=== PATIENT | female | born 1985 | race Caucasian/White ===

== ENCOUNTER 2017-01-10 07:12 | Inpatient (IN) | payer OTHER ==
[2017-01-10 07:56] LABS: Hematocrit 32.9 % (37.0-47.0); Hemoglobin 11.1 gm/dL (12.5-16.0); Mean Cell Volume 79.5 fl (78-100); Mean Corpuscular Hemoglobin 26.8 pg (27-31); Mean Corpuscular Hgb Conc 33.7 g/dl (32-36); Mean Platelet Volume 10.1 fl (6.0-9.5); Neutrophil # 5.3 K/mm3 (1.3-6.0); Neutrophil % 68.6 % (42-75.0); Platelet Count 218 K/mm3 (150-450); Red Blood Count 4.14 M/mm3 (4.2-5.4); Red Cell Distribution Width 14.5 % (11.5-14.0); White Blood Count 7.8 K/mm3 (4.0-10.5)
[2017-01-10] MEDS ORDERED: OXYTOCIN/DEXTROSE 5%-WATER 30 UNITS/500 ML BAG IV ONE (08:31)
[2017-01-10] MEDS ORDERED: ONDANSETRON HCL/PF 2 MG/ML VIAL IV PRN (08:31)
[2017-01-10] MEDS ORDERED: PENICILLIN G POTASSIUM 5 MILLIONUNT in DEXTROSE 5 % IN WATER 100 ML IV ONE ×2 (08:31)
[2017-01-10] MEDS ORDERED: LIDOCAINE HCL 50 ML VIAL PERI PRN (08:31)
[2017-01-10] MEDS: RINGERS SOLUTION,LACTATED 1,000 ML IV PRN ×2 (09:02→21:59)
[2017-01-10] MEDS: MISOPROSTOL 100 MCG TABLET VG PRN ×2 (09:03→13:45)
[2017-01-10] MEDS: PENICILLIN G POTASSIUM 2.5 MILLIONUNT in DEXTROSE 5 % IN WATER 100 ML IV SCH ×6 (13:07→21:59)
--- NOTE | 2017-01-10 18:20 | PN ---
Subjective - Date and Time Seen Date: 01/10/17 Subjective Narrative: labor note: 31 yo, CF, at 40.2 week. admitted for elective induction of labor. history of genital herpes on valtrex and no lesions now. histor of DVT after cardiac catheterization, plan for SCDs now and anticoagulation . GBS positive on penicillin. dilated to 1 cm, 50%, -2 s/p cytotec 25 mcg per vagina x 2. Cervix dilated to 3-4 cm, 60% and -2 Contractions: q2-4 min FHR reassuring. Plan: will start pitocin for induction/augmentation. epidural if desired. Duong Ozuna MD Objective - Vitals Vitals: Last Vital Signs Temp 36.4 C L 03/17/16 22:53 Pulse Resp BP 120/78 03/18/16 00:22 Pulse Ox - Abnormal Lab Findings Abnormal Lab Findings: Abnormal Lab Results 01/10/17 Range/Units 07:47 RBC 4.14 L (4.2-5.4) M/mm3 Hgb 11.1 L (12.5-16.0) gm/dL Hct 32.9 L (37.0-47.0) % MCH 26.8 L (27-31) pg RDW 14.5 H (11.5-14.0) % MPV 10.1 H (6.0-9.5) fl Immature Gran % (Auto) 0.90 H (0.001-0.429) % Immature Gran # (Auto) 0.07 H (0.000-0.0310) K/mm3
[2017-01-10] MEDS ORDERED: RINGERS SOLUTION,LACTATED 1,000 ML IV ONE (20:59)
[2017-01-10] MEDS ORDERED: fentaNYL CITRATE/PF 50 MCG/ML AMPUL IT SCH (21:45)
[2017-01-10] MEDS ORDERED: BUPIVACAINE HCL/0.9 % NACL/PF 250 ML EP PRN (21:45)
--- NOTE | 2017-01-10 21:49 | OR ---
Anesthesia Pre Procedure Eval Date of Service: 01/10/17 Pre Procedure Evaluation: Last Vital Signs Temp 36.4 C L 03/17/16 22:53 Pulse Resp BP 120/78 03/18/16 00:22 Pulse Ox Anesthesia Pre Procedure Evaluation Heart Rate:81 Blood Pressure:128/76 Termperature:37.1 Respiratory Rate:16 SaO2:97 DATE: 01/10/2017 TIME: 2144 INDICATIONS: Active labor, labor pain PAST MEDICAL HISTORY: Multipara patient and active labor requesting labor analgesia. Her last delivery was 8 years ago. She has since had several health issues including DVTs following surgery requiring anticoagulant therapy. She is not currently on anticoagulants. EXAM: Heart S1-S2 regular; lungs clear bilaterally ASSESSMENT OF MEDICAL STATUS: Appropriate candidate for labor analgesia PLANNED PROCEDURE: Combination spinal epidural for labor analgesia Home Medications: HOME MEDICATIONS Vit#96/Ferrous Fum/FA [ S] 1 tab PO DAILY 12/21/16 [Last Taken 12/21/16] valACYclovir HCL [Valtrex] 1,000 mg PO DAILY 12/21/16 [Last Taken 01/09/17 21:00 ] Calcium Carb/D3/Magnesium/Zinc [Dixon Mag Zinc + D Tablet] 0.5 each PO PRN PRN 07/17 [Last Taken Unknown]
--- NOTE | 2017-01-10 22:25 | OR ---
Anesthesia Procedure Note - Anesthesia Procedure Note Date of Service: 01/10/17 Narrative: Vital Signs - Last Taken Temp 36.4 C L 03/17/16 22:53 Pulse Resp BP 120/78 03/18/16 00:22 Pulse Ox 01/10/17 21:49 ANESTHESIA PROCEDURE NOTE Date of Procedure: 01/10/2017 Time of procedure: 2144. Performed by: SANIYA Fry CRNA, MSN [employer] Operator: Kari Mac RN. Preprocedure diagnosis: Active labor, labor pain. Post procedure diagnosis: Same. Procedure: Labor Epidural Placement L3 4. Indications: Labor pain. Findings: See below. Details of the procedure: The patient was placed on the side of the bed in sitting position. The patient was prepped with DuraPrep and draped in a sterile fashion. Lidocaine 1% was infiltrated to the skin and subcutaneous tissues at the level of the L3 4 interspace. The epidural space was identified using a 18-gauge Tuohy needle with [id number] technique. Fentanyl 20 g was given intrathecally the intrathecal needle was then removed and the epidural catheter was threaded approximately 4 cm, the epidural needle was then removed, and after careful aspiration 3 mL of 1.5% lidocaine with 1-200,000 epinephrine was injected without change in maternal heart rate or sensorium. The catheter was then taped in place. EBL: Minimal. Fluids: N/A. Specimen: N/A. Post procedure condition: The patient tolerated the procedure well with good relief. No complications were noted. Thank you for this consultation. Jonanthan Gonzalez CRNA, ARNP, MSN
[2017-01-11] MEDS: PENICILLIN G POTASSIUM 2.5 MILLIONUNT in DEXTROSE 5 % IN WATER 100 ML IV SCH ×4 (01:59→03:39)
[2017-01-11] MEDS ORDERED: HYDROCORTISONE 30 APPL TUBE TP PRN (03:31)
[2017-01-11] MEDS ORDERED: OXYTOCIN/DEXTROSE 5%-WATER 30 UNITS/500 ML BAG IV ONE (03:31)
[2017-01-11] MEDS ORDERED: diphenhydrAMINE HCL 25 MG CAPSULE PO PRN (03:31)
[2017-01-11] MEDS ORDERED: SENNOSIDES 8.6 MG TABLET PO PRN (03:31)
[2017-01-11] MEDS ORDERED: BENZOCAINE/MENTHOL 81 SPRAY CAN TP PRN (03:31)
[2017-01-11] MEDS ORDERED: BISACODYL 10 MG SUPP.RECT RC PRN (03:31)
[2017-01-11] MEDS ORDERED: GLYCERIN/WITCH HAZEL LEAF 40 APPL BOX TP PRN (03:31)
[2017-01-11] MEDS ORDERED: HYDROcodone/ACETAMINOPHEN 1 EACH TABLET PO PRN (03:31)
--- NOTE | 2017-01-11 03:49 | OR ---
Operative Report - Dictated Report Narrative: Spontaneous Vaginal Delivery Note: 31 yo, CF, admitted at 40.2 weeks for induction of labor due to post date. Dilated to 1 cm at admission. GBS positive on penicillin. Cytotec 25 mcg x 2 placed vaginally for cervical ripening and progressed to 3-4 cm. Pitocin started for augmentation. SROM with clear fluid at 8:30 pm last night. Received epidural at 11:00 pm. Progressed to complete without complications. The perineum cleaned with betadine. Pushed with contractions and descent. Head delivered in KHLOE over the perineum. No nuchal cord noted. The anterior shoulder delivered, followed by the posterior shoulder and the rest of the baby without difficulty. Baby cried at perineum. Cord was clamped, and cut by father of baby. Baby placed on maternal abdomen for drying and care by the nursing. Cord blood was obtained. Placenta delivered intact with 3 vessel cord. Pitocin drip started after placenta delivered. Exam of the perineum, vaginal and cervix revealed a partial third degree vaginal and perineum laceration, 5 cm in length with a partial torn external sphincter edge. This was repaired with 3-0 Vicryl suture in a normal fashion with repair of the torn external sphincter edge. Fundus was massaged and firm. Bleeding was minimal. Mother and baby tolerated the delivery well. EBL 150 ml. Infant: male, 3891 grams, 9/9. Time of delivery: 02:13. Duong Ozuna MD History for Definition: * The number of deliveries resulting in a live the patient experienced prior to current hospitalization * The previous delivery of live twins or any live multiple gestation is considered one live event. *If primagravida or nulliparous is documented select zero for the number of previous live births. Live Events: 1
[2017-01-11] MEDS: HYDROcodone/ACETAMINOPHEN 1 EACH TABLET PO PRN ×3 (04:14→21:01)
[2017-01-11] MEDS: IBUPROFEN 800 MG TABLET PO PRN ×4 (04:15→23:43)
[2017-01-11] MEDS ORDERED: ENOXAPARIN SODIUM 40 MG/0.4 ML SYRG SC SCH (09:00)
[2017-01-11] MEDS: DOCUSATE SODIUM 100 MG CAPSULE PO SCH ×2 (09:21→20:59)
[2017-01-11] MEDS: ENOXAPARIN SODIUM 40 MG/0.4 ML SYRG SC SCH (11:27)
[2017-01-12] MEDS: HYDROcodone/ACETAMINOPHEN 1 EACH TABLET PO PRN ×4 (05:16→21:48)
[2017-01-12] MEDS: IBUPROFEN 800 MG TABLET PO PRN ×2 (09:25→15:40)
[2017-01-12] MEDS: DOCUSATE SODIUM 100 MG CAPSULE PO SCH ×2 (09:25→21:46)
[2017-01-12] MEDS: ENOXAPARIN SODIUM 40 MG/0.4 ML SYRG SC SCH (11:36)
--- NOTE | 2017-01-12 13:05 | PN ---
Subjective - Date and Time Seen Date: 01/12/17 Subjective Narrative: day 1, s/p Doing well. No complaints. by pumping. Normal lochia. Has not have a bowel movement. Objective - Vitals Vitals: Last Vital Signs Temp 35.9 C L 01/12/17 06:56 Pulse 78 01/12/17 06:56 Resp 16 01/12/17 06:56 BP 123/69 01/12/17 06:56 Pulse Ox 99 01/12/17 06:56 - Exam Constitutional: Present: Alert, Oriented x3, Cooperative Respiratory: Present: no respiratory distress Cardiovascular/Chest: Present: normal peripheral pulses Abdomen: Present: soft, nontender, nondistended, other - fundus firm Extremity: Present: normal range of motion, no calf tenderness, pedal edema Skin Exam: Present: normal color, warm/dry, no cyanosis Eye contact: Present: cooperative, good eye contact, normal speech Cauti Physician Documentation - Urinary Catheter Management Urethral (Shaw) Date of Insertion: 01/10/17 Time of Insertion: 23:15 Assessment/Plan Plan Narrative: A: PPD#1, s/p stable and well. Plan: routine care. jim give a dose of Sinokot to help with a bowel movement. Duong Ozuna MD
[2017-01-13] MEDS: HYDROcodone/ACETAMINOPHEN 1 EACH TABLET PO PRN (04:49)
[2017-01-13] MEDS: IBUPROFEN 800 MG TABLET PO PRN (08:26)
[2017-01-13] MEDS: DOCUSATE SODIUM 100 MG CAPSULE PO SCH (08:26)
[2017-01-13 09:47] VITALS: BP 114/45
[2017-01-13] MEDS: ENOXAPARIN SODIUM 40 MG/0.4 ML SYRG SC SCH (10:56)
--- NOTE | 2017-01-13 13:10 | PN ---
Subjective - Date and Time Seen Date: 01/13/17 Subjective Narrative: No complaints. Voiding, ambulating, taking diet, pain controlled with non- narcotics, lochia small, . Objective - Review of Systems Generalized/Overall Review: Reports: No Symptoms Reported EENTM: Reports: No Symptoms Reported Respiratory: Reports: No Symptoms Reported Cardiac: Reports: No Symptoms Reported Abdominal: Reports: No Symptoms Reported Genitourinary Symptoms: Reports: No Symptoms Reported Musculoskeletal Complaints: Reports: No Symptoms Reported Neurological: Reports: No Symptoms Reported Skin: Reports: No Symptoms Reported Endocrine: Reports: No Symptoms Reported - Vitals Vitals: Last Vital Signs Temp 36.5 C 01/13/17 09:36 Pulse 65 01/13/17 09:36 Resp 16 01/13/17 09:36 BP 114/45 01/13/17 09:36 Pulse Ox 98 01/13/17 09:36 - Exam Constitutional: Present: Alert, Oriented x3, Cooperative, No distress Breasts: Present: Exam deferred Abdomen: Present: soft, nontender - fundus firm, below umb /Rectal: Present: External genitalia normal - perineual stitches intact Extremity: Present: other - mild generalized edema lower extremities Skin Exam: Present: normal color, warm/dry Appearance: Present: appropriate appearance Eye contact: Present: cooperative, good eye contact Cauti Physician Documentation - Urinary Catheter Management Urethral (Shaw) Urethral Indwelling: No Date of Insertion: 01/10/17 Time of Insertion: 23:15 Assessment/Plan Plan Narrative: Satisfactory course. Stable for discharge on Lovenox 40mg daily for VTE prophylaxis due to history. Patient knows how to administer. Will have f/u with Dr. Ozuna in 2 weeks. Advised to keep stools soft, take colace twice daily and drink lots of water. Other usual precautions given. - Problems/Diagnosis (1) History of venous thromboembolism Problem: Acute (2) (normal spontaneous vaginal delivery) Problem: Acute
[2017-01-13] MEDS ORDERED: ZINC PO PRN (13:28)
[2017-01-13] MEDS ORDERED: CALCIUM CARBONATE PO PRN (13:28)
[2017-01-13] MEDS ORDERED: [UNRECOGNIZED DRUG - OTHER] PO PRN (13:28)
[2017-01-13] MEDS ORDERED: MAGNESIUM PO PRN (13:28)
[2017-01-13] MEDS ORDERED: CHOLECALCIFEROL PO PRN (13:28)
--- NOTE | 2017-01-13 13:28 | DS ---
(1) History of venous thromboembolism Problem: Acute (2) (normal spontaneous vaginal delivery) Problem: Acute Description of Stay: Admitted at 40+2 weeks gestation for induction per Dr. Ozuna. Vaginal cytotec 25 MCG x 2 doses given with good response followed by pitocin augmentation. SROM and received epidural anesthesia. Underwent shading painter of 01/11/[address] Ozuna with delivery of viable 3891gm male infant apgars of 9 and 9. Partial 3rd degree perineal laceration sustained and repaired in standard fashion. patient did well, remained afebrile, advanced on diet and activity with small lochia and dry intact perineum at time of discharge. She is . Procedures Performed: see notes below List Procedures: cytotec induction of labor, pitocin augmentation, normal spontaneous vaginal delivery, partial 3rd degree perineal laceration, repaired, epidural anesthesia Results and Findings: viable 3891gm male Discharge Disposition: Home self care Disposition: Home self-care Condition: Good Discharge Activity: Other - vaginal rest 6 weeks Discharge Diet: General/regular food Referrals: Andry Zarate DO [Primary Care Provider] - Prescriptions (Any new or edited meds): Enoxaparin Sodium [Lovenox] 40 mg SQ DAILY #15 ml Complete Home Medications List: Complete Home Medication List: Vit#96/Ferrous Fum/FA [ S] 1 tab PO DAILY 12/21/16 valACYclovir HCL [Valtrex] 1,000 mg PO DAILY 12/21/16 Calcium Carb/D3/Magnesium/Zinc [Dixon Mag Zinc + D Tablet] 0.5 each PO PRN PRN 07/17 Enoxaparin Sodium [Lovenox] 40 mg SQ DAILY #15 ml 01/13/17
[2017-01-14] MEDS ORDERED: PRENATAL VIT PO SCH (09:00)
[2017-01-14] MEDS ORDERED: [UNRECOGNIZED DRUG - OTHER] PO SCH (09:00)
[2017-01-14] MEDS ORDERED: FERROUS FUM PO SCH (09:00)
== END 2017-01-13 15:18 | disposition home or self-care (01) | DRG 774 ==
LOC: OB 07:12 → MS 01-12 20:17
PROVIDERS: ADMIT Obstetrics & Gynecology; ATTEND Obstetrics & Gynecology
PROC: 10E0XZZ Delivery of Products of Conception, External Approach (ICD-10-PCS; principal; 2017-01-11)
PROC: 0DQR0ZZ Repair Anal Sphincter, Open Approach (ICD-10-PCS; 2017-01-11)
PROC: 4A1HXCZ Monitoring of Products of Conception, Cardiac Rate, External Approach (ICD-10-PCS; 2017-01-11)
PROC: 3E0S3CZ (ICD-10-PCS; 2017-01-11)
DX: O48.0 Post-term pregnancy (principal); O98.32 Other infections with a predominantly sexual mode of transmission complicating childbirth; O70.21 Third degree perineal laceration during delivery, IIIa; O99.824 Streptococcus B carrier state complicating childbirth; A60.04 Herpesviral vulvovaginitis; Z3A.40 40 weeks gestation of pregnancy; Z37.0 Single live birth; Z86.718 Personal history of other venous thrombosis and embolism; Z79.899 Other long term (current) drug therapy

== ENCOUNTER 2017-03-03 15:02 | Emergency (ER) | payer OTHER ==
--- NOTE | 2017-03-03 16:08 | ERNOTE ---
Lower Extremity HPI - Narrative Date of Service: 03/03/17 - General Lower Extremities Pain: foot: left Time Seen by Provider: 03/03/17 15:09 Source: patient Exam Limitations: no limitations - Immun/Allergies/Home Medications Immunizations: IMMUNIZATION HX Immunizations Up to Date Yes History of Influenza Vaccine Yes Hx Pneumococcal Vaccination No Allergies/Adverse Reactions: Allergies Allergy/AdvReac Type Severity Reaction Status Date / Time No Known Allergies Allergy Verified 03/03/17 15:09 Home Medications: HOME MEDICATIONS Vit#96/Ferrous Fum/FA [ S] 1 tab PO DAILY 12/21/16 [Last Taken 12/21/16] - History of Present Illness Narrative: Pt. comes in with c/o L foot pain from twisting her ankle when stepping off of a curb 2 weeks ago. Pt. denies any numbness tingling SOB, CP, recent illness, or prehospital treatment. Review of Systems - Review of Systems Constitutional: Present: no symptoms reported. Absent: recent illness, fever, chills, weakness, fatigue, malaise EYE: Present: no symptoms reported ENT: Present: no symptoms reported Respiratory: Present: no symptoms reported. Absent: shortness of breath, cough , wheezing Cardiology: Present: no symptoms reported. Absent: chest pain, palpitations, edema Musculoskeletal: Present: joint pain - L foot and ankle radiates to L calf Skin: Present: no symptoms reported. Absent: rash, change in color Neurological: Present: no symptoms reported. Absent: headache, dizziness/light- headedness, numbness, tingling All Other Systems: All systems neg except as marked - Patient's Past Medical History Patient History - Medical: Other Patient History - Cardiac/Respiratory: No pertinent hx Patient History - Cancer: No Hx of Cancer Patient History - Surgical Procedures: D & C, T & A, Other Patient History - Other: None - Social History Living Situations: home Abuse History: No History of abuse Psych History: No pertinent hx Alcohol Use: none Drug Use: none - Immunizations Immunizations Up to Date: Yes Hx Pneumococcal Vaccination: No History of Influenza Vaccine: Yes Physical Exam - Physical Exam General Appearance: Present: wd/wn, alert, no apparent distress Head Exam: Present: normal inspection, no evidence of injury Eye Exam: Normal inspection: bilateral, PERRL: bilateral, EOMI: bilateral Ears, Nose, Throat: Present: normal ENT inspection, normal pharynx Neck: Present: normal inspection, nontender. Absent: lymphadenopathy (R), lymphadenopathy (L) Respiratory: Present: no respiratory distress, normal breath sounds, no accessory muscle use, chest nontender, lungs clear Cardiovascular/Chest: Present: regular rate, rhythm, no murmur, normal peripheral pulses Back Exam: Present: normal inspection Extremity Exam: Present: decreased range of motion - extension and internal rotation Neurological Exam: Present: alert, oriented, normal mood/affect, no motor/ sensory deficits, emergency service worker II-XII nml as tested, normal cerebellar test Skin Exam: Present: normal color, warm/dry. Absent: pallor, skin rash ED Progress - Date and Time Seen: Date and Time: 03/03/17 15:58 As pt. has had this pain for over two weeks feel that pt. should be limited activity with derick wrap for support as I feel that this is a ligamentous injury and needs a chance to heal. - Vital Signs Patient's Vital Signs:: I have reviewed the patient's vital signs. Vital Signs: Vital Signs 03/03/17 15:05 Temperature 36.5 C Pulse Rate 70 Respiratory 12 Rate Blood Pressure 127/83 O2 Sat by Pulse 99 Oximetry - Progress/Reassessment Chief Complaint: Lower Extremity Pain/ Injury Departure Clinical Impression: Strain of foot, left Qualifiers: Encounter type: initial encounter Qualified Code(s): S96.912A - Strain of unspecified muscle and tendon at ankle and foot level, left foot, initial encounter - Departure Disposition: Home self-care Condition: Good Instructions: Foot Sprain, How to Use a Cast Shoe Additional Instructions: If not improved in 2 weeks please make appointment with ortho. Avoid walking long distances or standing for long periods of time, please rest with L foot elevated as much as possible. Referrals: Andry Zarate DO [Primary Care Provider] -
[2017-03-03 16:23] VITALS: BP 107/76
== END 2017-03-03 16:24 | disposition home or self-care (01) ==
LOC: ER 15:02
DX: S96.912A Strain of unspecified muscle and tendon at ankle and foot level, left foot, initial encounter (principal); W10.1XXA Fall (on)(from) sidewalk curb, initial encounter; Y93.01 Activity, walking, marching and hiking

== ENCOUNTER 2018-11-17 00:05 | Inpatient (IN) ==
[2018-11-17] MEDS ORDERED: OXYTOCIN/DEXTROSE 5%-WATER 30 UNITS/500 ML BAG IV ONE ×2 (00:08→19:04)
[2018-11-17] MEDS ORDERED: MISOPROSTOL 100 MCG TABLET VG PRN (00:08)
[2018-11-17] MEDS ORDERED: ONDANSETRON 4 MG TAB.RAPDIS PO PRN (00:08)
[2018-11-17] MEDS ORDERED: RINGER'S SOLUTION,LACTATED 1,000 ML IV ONE (00:08)
[2018-11-17] MEDS ORDERED: DEXTROSE 5%-LACTATED RINGERS 1,000 ML IV PRN (00:08)
[2018-11-17 00:50] LABS: Cocaine Ur Negative (NEGATIVE); Urine Barbiturate Negative (NEGATIVE); Urine Benzodiazepines Negative (NEGATIVE); Urine Opiates Negative (NEGATIVE); Urine PCP Negative (NEGATIVE); Urine THC Negative (NEGATIVE)
[2018-11-17] MEDS ORDERED: PENICILLIN G POTASSIUM 5 MILLIONUNT in DEXTROSE 5 % IN WATER 100 ML IV ONE ×2 (02:00)
[2018-11-17] MEDS: PENICILLIN G POTASSIUM 2.5 MILLIONUNT in DEXTROSE 5 % IN WATER 100 ML IV SCH ×6 (06:32→14:07)
[2018-11-17] MEDS ORDERED: BUPIVACAINE HCL/0.9 % NACL/PF 250 ML EP PRN (07:05)
[2018-11-17] MEDS ORDERED: NALOXONE HCL 1 MG/1 ML SYRG IV PRN (07:05)
[2018-11-17] MEDS ORDERED: ONDANSETRON HCL/PF 2 MG/ML VIAL IV PRN (07:05)
[2018-11-17] MEDS ORDERED: fentaNYL CITRATE/PF 50 MCG/ML AMPUL IT SCH (07:15)
--- NOTE | 2018-11-17 07:15 | ANES ---
Anesthesia Pre Procedure Eval Vitals/Labs: Last Vital Signs Temp 36.2 C 11/17/18 01:25 Pulse 90 11/17/18 01:25 Resp 18 11/17/18 01:25 BP 125/69 11/17/18 01:25 Pulse Ox 98 11/17/18 01:25 HOME MEDICATIONS Vits96/Iron Fum/Folic [ S] 1 tab PO DAILY 12/21/16 [Last Taken 12/21/16] breast pump See Dose Instructions .ROUTE .MEDSUPPLY #1 ea 05/29/18 [Last Taken Unknown] valacyclovir 1 gram tablet 1,000 mg PO DAILY #30 tab 09/01/18 [Last Taken Unknown] calcium carbonate 200 mg calcium (500 mg) chewable tablet 200 mg PO HS PRN tab 10/17/18 [Last Taken Unknown] Allergies/Adverse Reactions: Allergies Allergy/AdvReac Type Severity Reaction Status Date / Time No Known Allergies Allergy Verified 11/17/18 01:22 - Planned Procedure Planned Procedure: MEDICAL INDUCTION Medication List Reviewed:: Yes Allergies Verified: Yes Medical History (Updated 04/14/18 @ 13:16 by Duong Ozuna MD) HSV (herpes simplex virus) infection Onset Date: ~09/24/14 High risk HPV infection Onset Date: ~08/29/14 Pap smear of vagina with ASC-US Onset Date: ~08/29/14 DVT (deep venous thrombosis) Onset Date: Unknown RLE Edema of lower extremity Onset Date: ~09/2015 right Ovarian cyst Onset Date: Unknown [place] teeth extracted Onset Date: Unknown Surgical History (Updated 04/11/18 @ 11:49 by Dali Wang RN) H/O dilation and curettage Onset Date: ~2006 missed AB H/O neck surgery Onset Date: ~10/14 & 12/14. disc replacement H/O ovarian cystectomy Onset Date: ~2006 right History of colposcopy Onset Date: ~09/24/14 negative History of incision and drainage Onset Date: ~03/17/17 abscess right upper chest Hx of tonsillectomy Onset Date: Unknown Family History (Updated 04/11/18 @ 11:51 by Dali Wang RN) Mother Multiple sclerosis Father Myocardial infarction - Family Anesthesia History Family History:: no untoward family reactions to anesthesia, no familial bleeding tendencies, no family history of clotting disorders, no family history of premature - Airway/Neck/Teeth Teeth Condition: intact Neck Exam: full range of motion Mallampatti Score: 2 Thyromental (T-M) distance: > 6 cm Mandibulo Hyoid distance: > 3 cm - Respiratory Respiratory Physical: lungs clear Smoking Status: Never smoker Sleep Apnea currently treated: No Sleep Apnea by current assessment: No - Cardiovascular Tolerate Activity: Fair Heart Sounds: S1 & S2, Regular - Anesthesia Assessment and Plan ASA Class: PS, II Anesthesia Type Plan: Epidural - CSE for labor analgesia
--- NOTE | 2018-11-17 07:39 | ANES ---
Post Anesthesia Discharge - Transfer of Care Transfer of Care handoff given to nurse: Yes - Discharge from PACU Discharge from PACU when meets criteria: Yes - Comfortable after CSE
--- NOTE | 2018-11-17 07:41 | ANES ---
Anesthesia Procedure Note Procedure Note: ANESTHESIA PROCEDURE NOTE Date of Procedure: 11/17/2018 Time of procedure: 7:20 AM. Performed by: Jonnathan Gonzalez CRNA, MSN [employer] Technician: Ann Landaverde RN. Preprocedure diagnosis: Active labor, labor pain. Post procedure diagnosis: Same. Procedure:Epidural for labor analgesia L3 4. Indications: Labor pain. Findings: See below. Details of the procedure: The patient was placed on the side of the bed in sitting positionand prepped with DuraPrep then draped in a sterile fashion. Lidocaine 1% was infiltrated to the skin and subcutaneous tissues at the level of the L3 4 interspace. An 18-gauge Touhy needle was used to approach the epidural space with loss of resistance technique. Once loss of resistance was achieved a 27-gauge spinal needle was passed through the epidural needle and CSF was contacted. After CSF returned, 20 mcg of fentanyl was injected in the spinal needle was removed the epidural catheter was then threaded approximately 4 cm in the epidural needle was removed. The catheter was taped in place and after careful aspiration 3 mL of 2% lidocaine with 1-200,000 epinephrine was injected without change in maternal heart rate or sensorium. . EBL: Minimal. Fluids: N/A. Specimen: N/A. Post procedure condition: The patient tolerated the procedure well with good r elief. No complications were noted. Thank you for this consultation. Jonnathan Gonzalez CRNA, MSN
--- NOTE | 2018-11-17 08:08 | HP ---
Chief Complaint - Chief Complaint Date of Service: 11/17/18 Time of Service: 08:01 Chief Complaint: induction of labor for AMA History of Present Illness: 33 yo at 39 weeks here for induction of labor due to advanced maternal age. This complicated by anemia, AMA, morbid obesity, HSV (no outbreak in >2mo, on prophylaxis). Rh negative Rubella immune GBS positive Medical History (Updated 11/17/18 @ 08:08 by Smith Baltazar DO) HSV (herpes simplex virus) infection Onset Date: ~09/24/14 High risk HPV infection Onset Date: ~08/29/14 Pap smear of vagina with ASC-US Onset Date: ~08/29/14 DVT (deep venous thrombosis) Onset Date: Unknown RLE Edema of lower extremity Onset Date: ~09/2015 right Ovarian cyst Onset Date: Unknown [place] teeth extracted Onset Date: Unknown Surgical History: Surgical History (Updated 11/17/18 @ 08:08 by Smith Baltazar DO) H/O dilation and curettage Onset Date: ~2006 missed AB H/O neck surgery Onset Date: ~10/14 & 12/14. disc replacement H/O ovarian cystectomy Onset Date: ~2006 right History of colposcopy Onset Date: ~09/24/14 negative History of incision and drainage Onset Date: ~03/17/17 abscess right upper chest Hx of tonsillectomy Onset Date: Unknown Family History: Family History (Updated 04/11/18 @ 11:51 by Dali Wang RN) Mother Multiple sclerosis Father Myocardial infarction Social History: Preferred Language Czech Smoking Status Never smoker Abuse History No History of abuse Psych History No pertinent hx (Last Updated 11/14/18 @ 14:54 by Smith Baltazar DO) No Social History Section defined Review Of Systems (GEN) - Review of Systems Generalized/Overall Review: Present: No Symptoms Reported EENTM: Present: No Symptoms Reported Respiratory: Present: No Symptoms Reported Cardiac: Present: No Symptoms Reported Abdominal: Present: No Symptoms Reported Genitourinary: Present: No Symptoms Reported Musculoskeletal: Present: No Symptoms Reported Neurological: Present: No Symptoms Reported Skin: Present: No Symptoms Reported Endocrine: Present: No Symptoms Reported Immunizations: IMMUNIZATION HX Immunizations Up to Date Yes History of Influenza Vaccine Yes Hx Pneumococcal Vaccination No Allergies/Adverse Reactions: Allergies Allergy/AdvReac Type Severity Reaction Status Date / Time No Known Allergies Allergy Verified 11/17/18 01:22 Home Medications: HOME MEDICATIONS Vits96/Iron Fum/Folic [ S] 1 tab PO DAILY 12/21/16 [Last Taken 12/21/16] breast pump See Dose Instructions .ROUTE .MEDSUPPLY #1 ea 05/29/18 [Last Taken Unknown] valacyclovir 1 gram tablet 1,000 mg PO DAILY #30 tab 09/01/18 [Last Taken Unknown] calcium carbonate 200 mg calcium (500 mg) chewable tablet 200 mg PO HS PRN tab 10/17/18 [Last Taken Unknown] Exam - Exam Vital Signs: Vital Signs - Last Taken Temp 36.2 C 11/17/18 01:25 Pulse 90 11/17/18 01:25 Resp 18 11/17/18 01:25 BP 125/69 11/17/18 01:25 Pulse Ox 98 11/17/18 01:25 Constitutional: Present: Alert, Oriented x3, Cooperative, No distress ENT Exam: Present: hearing grossly normal Respiratory: Present: lungs clear, no respiratory distress Cardiovascular/Chest: Present: regular rate, rhythm Abdomen: Present: soft, nontender, no rebound tenderness, other - gravid /Rectal: Present: Other - 3/50/-1 Extremity: Present: no calf tenderness, lower extremity edema Skin Exam: Present: normal color, warm/dry, no cyanosis Lymphatic: Present: no adenopathy Neurologic: Present: alert, normal mood/affect, oriented x 3 Appearance: Present: appropriate appearance, appropriate insight Eye contact: Present: cooperative, good eye contact, normal speech Thoughts: Present: normal thought pattern, no apparent hallucination Diagnostic Studies: Laboratory Results Negative (NEGATIVE) 11/17/18 00:26 Negative (NEGATIVE) 11/17/18 00:26 Ur Phencyclidine Scrn Negative (NEGATIVE) 11/17/18 00:26 Urine Amphetamine Negative (NEGATIVE) 11/17/18 00:26 U Benzodiazepines Scrn Negative (NEGATIVE) 11/17/18 00:26 Negative (NEGATIVE) 11/17/18 00:26 Negative (NEGATIVE) 11/17/18 00:26 Assessment/Plan - Assessment/Plan (1) Encounter for induction of labor Assessment: Admit for induction of labor. Epidural PRN. Lovenox PP x 6 wks. Problem: Acute (2) History of venous thromboembolism Problem: Acute (3) Advanced maternal age (AMA) in Problem: Chronic (4) HSV antigen DIF positive Problem: Chronic (5) Obesity Problem: Chronic Qualifiers: Obesity type: due to excess calories Obesity classification: adult class 3 (BMI >= 40) Body mass index: BMI 40.0-44.9
--- NOTE | 2018-11-17 08:22 | ANES ---
Post Anesthesia Assessment - Vital Signs Vitals: Last Vital Signs Temp 36.2 C 11/17/18 01:25 Pulse 90 11/17/18 01:25 Resp 18 11/17/18 01:25 BP 125/69 11/17/18 01:25 Pulse Ox 98 11/17/18 01:25 Airway Patency: Normal - Mental Status Level Of Consciousness: Awake, Alert, Appropriate - Pain Level Pain Score: 0 - N/V Assessment Nausea/Vomiting Presence: None Dehydration:: No
--- NOTE | 2018-11-17 12:35 | PN ---
Progess Note - Interim Date: 11/17/18 Time: 12:29 Narrative: 11/17/18 12:29 Patient comfortable with epidural Vital signs stable. Pitocin at 12 mu/min. FHT: 145 baseline, reassuring Contractions q 2-3 min Cervix:/70/-2, floor bag ruptured with clear fluid Impression: Intrauterine at 39 weeks induction of labor for advanced maternal age. GBS positive-status post 3 doses Plan: Continue present plan
[2018-11-17] MEDS ORDERED: GLYCERIN/WITCH HAZEL LEAF 40 APPL BOX TP PRN (19:04)
[2018-11-17] MEDS ORDERED: HYDROCORTISONE 30 APPL TUBE TP PRN (19:04)
[2018-11-17] MEDS ORDERED: BISACODYL 10 MG SUPP.RECT RC PRN (19:04)
[2018-11-17] MEDS ORDERED: oxyCODONE HCL/ACETAMINOPHEN 1 TAB TABLET PO PRN (19:04)
[2018-11-17] MEDS ORDERED: CALCIUM CARBONATE 500 MG TAB.CHEW PO PRN (19:04)
[2018-11-17] MEDS ORDERED: BENZOCAINE/MENTHOL 81 SPRAY CAN TP PRN (19:04)
[2018-11-17] MEDS ORDERED: SENNOSIDES 8.6 MG TABLET PO PRN (19:04)
[2018-11-17] MEDS ORDERED: [UNRECOGNIZED DRUG - OTHER] SCH (19:15)
--- NOTE | 2018-11-17 19:50 | OR ---
Operative Report - Dictated Report Narrative: Spontaneous vaginal delivery of viable female at 1822 on 11/17/2018 with Apgars 8 and 9, weighing 4222 g and KHLOE position with tight nuchal cord 1. Infant was crying on mother's abdomen. Cord clamping delayed approximately 1 minute Placenta delivered complete, intact, with three vessel cord Estimated blood loss: less than 50 ml Anesthesia: epidural Lacerations: Second degree vaginal laceration (5cm) was repaired with 3-0 Vicryl Rapide History for Definition: * The number of deliveries resulting in a live the patient experienced prior to current hospitalization * The previous delivery of live twins or any live multiple gestation is considered one live event. *If primagravida or nulliparous is documented select zero for the number of previous live births. Live Events: 2
[2018-11-17] MEDS: IBUPROFEN 800 MG TABLET PO PRN (19:57)
[2018-11-18] MEDS ORDERED: ENOXAPARIN SODIUM 40 MG/0.4 ML SYRG SC SCH (02:00)
[2018-11-18] MEDS: DOCUSATE SODIUM 100 MG CAPSULE PO SCH ×3 (02:19→21:08)
[2018-11-18] MEDS: ENOXAPARIN SODIUM 40 MG/0.4 ML SYRG SC SCH (02:23)
[2018-11-18] MEDS: IBUPROFEN 800 MG TABLET PO PRN ×3 (02:23→17:29)
[2018-11-18] MEDS: oxyCODONE HCL/ACETAMINOPHEN 1 TAB TABLET PO PRN ×3 (03:24→21:11)
[2018-11-18] MEDS: PRENATAL VITS96/IRON FUM/FOLIC 1 TAB TABLET PO SCH (09:46)
--- NOTE | 2018-11-18 11:13 | PN ---
Subjective - Date and Time Seen Date: 11/18/18 Time: 11:12 Objective - Vitals Vitals: Last Vital Signs Temp 36.2 C 11/18/18 07:07 Pulse 79 11/18/18 07:07 Resp 18 11/18/18 07:07 BP 129/68 11/18/18 07:07 Pulse Ox 98 11/18/18 07:07 Patient denies complaints. Breast-feeding Lochia wnl Abdomen - soft, nontender Uterus - firm, at umbilicus - 1 No calf tenderness Impression: day #1 - s/p spontaneous vaginal delivery. History of DVT Plan: Continue routine care. Prophylactic anticoagulation from the next 6 weeks. Cauti Physician Documentation - Urinary Catheter Management Urethral (Shaw) Date of Insertion: 11/17/18 Time of Insertion: 07:50 Assessment/Plan - Problems/Diagnosis (1) Encounter for induction of labor Problem: Acute (2) History of venous thromboembolism Problem: Acute (3) Advanced maternal age (AMA) in Problem: Chronic (4) HSV antigen DIF positive Problem: Chronic (5) Obesity Problem: Chronic Qualifiers: Obesity type: due to excess calories Obesity classification: adult class 3 (BMI >= 40) Body mass index: BMI 40.0-44.9
[2018-11-19] MEDS: ENOXAPARIN SODIUM 40 MG/0.4 ML SYRG SC SCH (00:59)
[2018-11-19] MEDS: IBUPROFEN 800 MG TABLET PO PRN ×2 (01:01→08:29)
[2018-11-19 07:12] VITALS: BP 114/76
--- NOTE | 2018-11-19 08:25 | PN ---
Subjective - Date and Time Seen Date: 11/19/18 Time: 08:24 Objective - Vitals Vitals: Last Vital Signs Temp 36.8 C 11/19/18 07:09 Pulse 76 11/19/18 07:09 Resp 16 11/19/18 07:09 BP 114/76 11/19/18 07:09 Pulse Ox 98 11/19/18 07:09 Patient denies complaints. Breast-feeding well Lochia wnl Abdomen - soft, nontender Uterus - firm, at umbilicus - 2 No calf tenderness Impression: day #2 - s/p spontaneous vaginal delivery. History of DVT - on Lovenox 40 mg daily Plan: Routine discharge instructions. Continue Lovenox for a total of 6 weeks. VTE precautions Cauti Physician Documentation - Urinary Catheter Management Urethral (Shaw) Date of Insertion: 11/17/18 Time of Insertion: 07:50 Assessment/Plan - Problems/Diagnosis (1) Encounter for induction of labor Problem: Acute (2) History of venous thromboembolism Problem: Acute (3) Advanced maternal age (AMA) in Problem: Chronic (4) HSV antigen DIF positive Problem: Chronic (5) Obesity Problem: Chronic Qualifiers: Obesity type: due to excess calories Obesity classification: adult class 3 (BMI >= 40) Body mass index: BMI 40.0-44.9
[2018-11-19] MEDS: PRENATAL VITS96/IRON FUM/FOLIC 1 TAB TABLET PO SCH (08:29)
[2018-11-19] MEDS: DOCUSATE SODIUM 100 MG CAPSULE PO SCH (08:29)
== END 2018-11-19 13:47 | disposition home or self-care (01) | DRG 806 ==
LOC: OB 00:05
PROVIDERS: ADMIT Obstetrics & Gynecology; ATTEND Obstetrics & Gynecology
CPT/HCPCS: 59025; 80307; 88307